=== PATIENT | female | born 1945 | race Caucasian/White ===

== ENCOUNTER → 2017-02-07 | Outpatient (CLI) | payer OTHER, MEDICARE ==
[~2017-02-07] VITALS: Ht 144.8 cm; Wt 56.2 kg
[~2017-02-07] MED LIST: ACETAMINOPHEN325 M1 PO; ALLEGRA60 MG; CLARITIN10 M2 PO; EVISTA PO; HYDROCODON-ACE1 EAC8 PO; MULTIVITAMINS PO; PEPCID PO; PEPCID20 MG PO; PREDNISONE 20 M20 M1 PO; SIMBRINZA 1%-0.28 ML OPHTHALMIC; TUMS E.S.750 MG PO; ULTRAM 50MG TAB50 MG PO; VALIUM5 MG PO; VITAMIN D1000 UNIT PO; ZYRTEC10 M2 PO
--- NOTE | ~2017-02-07 | S ---
[facility] [place] [address] SURGICAL PATH RPT PROCEDURE Name: FERNANDA KEVIN Room #: [facility] Dilshad#: [id number] Admission: 02/07/17 Date of : 41 Discharge: Report #: [id number] Path Case #: [id number] PATHOLOGY REPORT COLLECTION DATE: 02/07/2017 RECEIVED DATE: 02/07/2017 SUBMITTING PHYS: Dr. Jac Donnelly OTHER PHYS: Dr Zaynab Coles SPECIMEN(S) RECEIVED: A.Bx at duodenum B.Bx at gastric * * * * * * * * * * * * FINAL DIAGNOSIS: A. Small bowel mucosa, "duodenum", endoscopic biopsy: - No diagnostic abnormalities. B. Gastric mucosa, "gastric", endoscopic biopsy: - Mild chronic gastritis with features of reactive gastropathy. - No evidence of intestinal metaplasia or atrophy. - No Helicobacter pylori identified. COMMENT: Helicobacter pylori immunohistochemical stain performed on block B1- negative. (IUV; 02/09/17) PATHOLOGIST: Angela Maddox M.D. REPORT ELECTRONICALLY SIGNED BY: Angela Maddox M.D. DATE/TIME: 02/09/2017 15:48 * * * * * * * * * * * * GROSS PATHOLOGY: A. Received in formalin labeled "Fernanda Kevin, BX at duodenum," are 4 segments of montez soft tissue measuring 1.3 x 0.2 x 0.2 cm in aggregate dimensions and ranging from 0.2 to 0.5 cm in maximum dimension. The specimen is submitted entirely in cassette A1. B. Received in formalin labeled "Fernanda Kevin, BX gastricgastritis," are 3 segments of montez soft tissue measuring 1.2 x 0.2 x 0.2 cm in aggregate dimensions and ranging from 0.2 to 0.7 cm in maximum dimension. The specimen is submitted entirely in cassette B1. (CANDY; 02/08/2017) CLINICAL HISTORY: [address] [address] SURGICAL PATH RPT PROCEDURE Name: SYLVIA KEVINAURELIA Becker Room #: [facility] M..#: [id number] Admission: 02/07/17 Date of : 41 Discharge: Report #: [id number] Path Case #: [id number] Anemia, abdominal pain INITIAL CPT CODE(S): A; 29124 B; 22801, 65235 Professional services performed by [facility] at [address], [place] [address] Technical services performed by [facility] at [address] [place] [address], [facility] [address] [address]. [facility] [address] [place] [address] PHONE: [phone] DIRECTOR: Antwan Currie M.D. * * * END OF REPORT * * *
== END | disposition home or self-care (01) ==
LOC: GI 08:38
DX: K29.50 Unspecified chronic gastritis without bleeding (principal); K20.8 Other esophagitis; K44.9 Diaphragmatic hernia without obstruction or gangrene; Z88.8 Allergy status to other drugs, medicaments and biological substances; Z87.891 Personal history of nicotine dependence; M19.90 Unspecified osteoarthritis, unspecified site; K21.9 Gastro-esophageal reflux disease without esophagitis; Z98.890 Other specified postprocedural states; Z96.612 Presence of left artificial shoulder joint; Z96.653 Presence of artificial knee joint, bilateral; Z98.41 Cataract extraction status, right eye; Z98.42 Cataract extraction status, left eye; Z96.1 Presence of intraocular lens
CPT/HCPCS: 62110; 62900

== ENCOUNTER → 2020-03-10 | Outpatient (CLI) | payer OTHER, MEDICARE | LOC: NUC 09:42 | PROVIDERS: ATTEND Neuromusculoskeletal Medicine & OMM | DX: M81.0 Age-related osteoporosis without current pathological fracture (principal); M85.88 Other specified disorders of bone density and structure, other site ==

== ENCOUNTER → 2020-03-11 | Outpatient (CLI) | payer OTHER, MEDICARE | LOC: SJCVC 14:09 | PROVIDERS: ATTEND Internal Medicine Cardiovascular Disease | DX: R94.31 Abnormal electrocardiogram [ECG] [EKG] (principal); R93.1 Abnormal findings on diagnostic imaging of heart and coronary circulation; I10 Essential (primary) hypertension; E78.00 Pure hypercholesterolemia, unspecified; Z79.899 Other long term (current) drug therapy ==

== ENCOUNTER → 2020-06-11 | Outpatient (CLI) | payer OTHER, MEDICARE | LOC: SJCVC 10:46 | PROVIDERS: ATTEND Internal Medicine Cardiovascular Disease | DX: E78.2 Mixed hyperlipidemia (principal) ==

== ENCOUNTER → 2020-12-10 | Outpatient (CLI) | payer OTHER, MEDICARE | LOC: SJCVCIMAG 07:33 | PROVIDERS: ATTEND Internal Medicine Cardiovascular Disease | DX: I08.1 Rheumatic disorders of both mitral and tricuspid valves (principal); I49.3 Ventricular premature depolarization; R06.00 Dyspnea, unspecified; Z13.6 Encounter for screening for cardiovascular disorders; E78.2 Mixed hyperlipidemia; I77.9 Disorder of arteries and arterioles, unspecified; R93.1 Abnormal findings on diagnostic imaging of heart and coronary circulation; I10 Essential (primary) hypertension; E78.00 Pure hypercholesterolemia, unspecified; Z79.899 Other long term (current) drug therapy ==